=== PATIENT | male | born 1975 | race Caucasian/White ===

== ENCOUNTER 2021-05-14 15:19 | Emergency (ER) | payer SELFPAY ==
[2021-05-14 15:20] VITALS: BP 137/98; PULSE 123; RESP 14; TEMP 36.3; O2SAT 98; BMI 27.1
--- NOTE | 2021-05-14 15:46 | EX.ED.UPPERE ---
HPI History of Present Illness HPI Narrative: Patient presents with laceration to his right hand that occurred today. Patient was running from police when he jumped over a chain link fence. Patient cut his hand on the fence. Patient is unsure of his last tetanus. Patient states the bleeding has been persistent. Patient describes the pain as aching, burning, and throbbing. Patient denies any paresthesias or weakness. Patient states nothing makes his pain better or worse. Chief Complaint: Laceration Informant: patient Occured/Mechanism Comment: Cut on a chain link fence Onset/Context/Timing Context: Sudden Onset Timing: Continuous Location: Right hand Worsened by: Nothing Relieved by: Nothing Associated Symptoms Associated Symptoms: Negative for Parasthesia, Weakness and Loss of Funtion Narrative Tetanus Immunization: Unknown PFSH PFSH no medical history Allergy/AdvReac Type Severity Reaction Status Date / Time No Known Allergies Allergy Verified 05/14/21 15:22 no surgical history Social History Smoking Status: Current every day smoker tobacco type: cigarettes ROS ROS ED Constitutional Constitutional ED: Denies chills or fever(s) Eyes Eyes: Denies blurry vision or change in vision ENT ENT ED: Denies rhinorrhea or sore throat Cardiovascular Cardiovascular: Denies chest pain or palpitations Respiratory/Chest Respiratory/Chest: Denies cough or dyspnea Gastrointestinal Gastrointestinal: Reports nausea; Denies vomiting Genitourinary Genitourinary ED: Denies dysuria or hematuria Musculoskeletal Musculoskeletal: Denies back pain or neck pain Integumentary Denies abscess or rash Neurologic Neurologic: Denies headache(s) or weakness Allergic/Immunologic Allergic/Immunologic ED: Denies mouth swelling or urticaria EXAM Physical Exam Const Vital Signs: 05/14/21 15:20 Temperature 97.3 F L Temperature Source Temporal Pulse Rate 123 H Respiratory Rate 14 Blood Pressure 137/98 H Blood Pressure Mean 111 Pulse Ox 98 Oxygen Delivery Method Room Air Positive well nourished and well developed General Appearance ED: well developed Neck full ROM and supple Neuro oriented x3, CN's II-XII intact bilaterally, moves all extremities, no focal motor deficits and no sensory deficits noted Sensorium / Orientation: alert Psych mental status grossly normal Skin Skin Narrative: There is a superficial flap laceration in the webspace between the thumb and index finger. There is no active bleeding at this time. There is minimal gapping of the wound margins. There are no foreign bodies noted. There is no subcutaneous involvement. Sensation was intact to light touch in all digits. Capillary refill was less than 2 seconds in all digits. MDM MDM MDM Narrative Medical decision making narrative: The wound is superficial and sutures are not necessary at this time. The wound was cleaned and dressed with bacitracin dressing. Patient was given a tetanus booster. Patient was instructed to keep the wound clean and dry. Patient was instructed to follow-up with his primary care physician in 5 to 7 days. Patient understood and was agreeable with the plan. All questions were answered. Discharge Plan Triage Chief Complaint: Laceration ED Provider: Juan J Lee Dx/Rx/DC Orders Clinical Impression: Laceration of right hand Instructions: ED Laceration Small or ... Primary Care Provider: Care Physician,No Primary Referrals: Maida Duran [NON-STAFF] - 1-2 Weeks Care Physician,No Primary [Primary Care Provider] - Disposition Disposition: Home, self care
[2021-05-14] MEDS: Diphth,Pertuss(Acell),Tet Vac 0.5 ML Vial IM (15:55)
== END 2021-05-14 16:45 | disposition home or self-care (01) ==
PROVIDERS: Emergency Provider Emergency Medicine
DX: S61.411A Laceration without foreign body of right hand, initial encounter (principal); F17.210 Nicotine dependence, cigarettes, uncomplicated; X58.XXXA Exposure to other specified factors, initial encounter
CPT/HCPCS: 90471; 90715; 99284